=== PATIENT | male | born 1950 | race Hispanic/Latino ===

== ENCOUNTER 2018-02-06 09:41 | Emergency (ER) | payer SELFPAY ==
[2018-02-06 09:46] VITALS: PULSE 100; TEMP 97.2; O2SAT 97
[2018-02-06 09:47] VITALS: BMI 25.5
[2018-02-06 10:50] LABS: HEMOGLOBIN 13.8 g/dL (12.0-18.0); MEAN CELL VOLUME 89.2 fl (80.0-94.0); MEAN CORPUSCULAR HGB CONC 32.5 g/dL (33.0-37.0); RBC 4.77 Mil/uL (4.40-5.90); RED CELL DISTRIBUTION WIDTH 15.4 % (11.5-14.5)
[2018-02-06 11:19] LABS: ALB/GLOB RATIO 1.4 (1.0-2.1); ALBUMIN 4.6 g/dL (3.5-5.0); ALT/SGPT 35 U/L (21-72); AST/SGOT 41 U/L (17-59); BLOOD UREA NITROGEN 17 mg/dl (9-20); GFR NON-AFRICAN AMERICAN > 60
--- NOTE | 2018-02-06 13:39 | ED PDOC ---
HPI: Psych/Substance Abuse Time Seen by Provider: 02/06/18 09:51 Chief Complaint (Nursing): Alcohol Ingestion Chief Complaint (Provider): Alcohol abuse Modifying Factor(s): Alcohol Additional Complaint(s): 67 yo male with no medical problems presents for evaluation of alcohol abuse. Pt was found sleeping in bushes. Pt states he is visiting from [place]. Pt reports stayign in hotel in [facility]. PT states he normally drinks every tuesday. PT states that this weekend is his sons birthday and his son over the summer from drowning. PT states he went out with his sons friends and got out of hand. Pt denies complaints. Pt cooperative in ER. Denies takign medications daily. Pt admits to drinking. Pt denies drug use. Pt denies SI/HI. Pt states there is a medication he had anaphylaxis to in the past but does not remember the name. Past Medical History Reviewed: Historical Data, Nursing Documentation, Vital Signs Vital Signs: Last Vital Signs Temp 97.2 F L 02/06/18 09:45 Pulse 100 H 02/06/18 09:45 Resp 18 02/06/18 09:45 BP 148/87 02/06/18 09:45 Pulse Ox 97 02/06/18 09:45 - Medical History PMH: No Chronic Diseases - Surgical History Surgical History: No Surg Hx - Family History Family History: States: No Known Family Hx - Allergies Allergies/Adverse Reactions: Allergies Allergy/AdvReac Type Severity Reaction Status Date / Time Unobtainable Allergy Verified 02/06/18 10:16 Review of Systems ROS Statement: Except As Marked, All Systems Reviewed And Found Negative Constitutional: Negative for: Fever, Chills Cardiovascular: Negative for: Chest Pain Respiratory: Negative for: Cough Gastrointestinal: Negative for: Nausea, Vomiting, Abdominal Pain Genitourinary Male: Negative for: Dysuria, Frequency Skin: Negative for: Rash Psych: Negative for: Psychosis, Suicidal ideation Physical Exam - Reviewed Nursing Documentation Reviewed: Yes Vital Signs Reviewed: Yes - Physical Exam Appears: Positive for: Well, Non-toxic, No Acute Distress Head Exam: Positive for: ATRAUMATIC, NORMAL INSPECTION, NORMOCEPHALIC Skin: Positive for: Normal Color, Warm, DRY Eye Exam: Positive for: Normal appearance ENT: Positive for: Normal ENT Inspection Neck: Positive for: Normal, Painless ROM Cardiovascular/Chest: Positive for: Regular Rate, Rhythm Respiratory: Positive for: Normal Breath Sounds. Negative for: Accessory Muscle Use, Respiratory Distress Gastrointestinal/Abdominal: Positive for: Normal Exam, Soft. Negative for: Tenderness Back: Positive for: Normal Inspection Extremity: Positive for: Normal ROM Neurologic/Psych: Positive for: Alert, Oriented - Laboratory Results Result Diagrams: 02/06/18 10:40 02/06/18 10:40 - ECG O2 Sat by Pulse Oximetry: 97 Medical Decision Making Medical Decision Making: Pt slept in ER. Remains cooperative. 1340 - Clear speech and steady gait. Denies complaints. Denies SI/HI Disposition - Clinical Impression Clinical Impression: Alcohol abuse with intoxication - Patient ED Disposition Is Patient to be Admitted: No Counseled Patient/Family Regarding: Diagnosis, Need For Followup, Rx Given - Disposition Disposition: Routine/Home Disposition Time: 13:37 Condition: GOOD Instructions: Effects of Alcohol on Your Health, Alcohol Abuse and Alcoholism (DC)
[2018-02-06 14:07] VITALS: BP 148/83; RESP 20
== END 2018-02-06 14:08 | disposition home or self-care (01) ==
LOC: H.ER 09:41
DX: F10.129 Alcohol abuse with intoxication, unspecified (principal); Y90.8 Blood alcohol level of 240 mg/100 ml or more
CPT/HCPCS: 80053; 85027; 99283; G0480